=== PATIENT | female | born 1945 | race African-American/Black ===

== ENCOUNTER 2019-01-31 16:08 | Emergency (ER) | payer MEDICARE, OTHER ==
[~2019-01-31] VITALS: Ht 167.6 cm; Wt 82.0 kg
[2019-01-31] MEDS ORDERED: KETOROLAC 60MG/2ML VIAL IM ONE (17:15)
[2019-01-31 17:36] VITALS: BP 112/66
== END 2019-01-31 18:47 | disposition home or self-care (01) ==
LOC: ER 16:08
DX: J20.9 Acute bronchitis, unspecified (principal); I10 Essential (primary) hypertension; E11.9 Type 2 diabetes mellitus without complications; F17.210 Nicotine dependence, cigarettes, uncomplicated
CPT/HCPCS: 96372; 99283; J1885

== ENCOUNTER 2019-02-04 14:04 | Emergency (ER) | payer OTHER ==
[~2019-02-04] VITALS: Ht 167.6 cm; Wt 79.8 kg
[2019-02-04 14:16] VITALS: BP 103/62
== END 2019-02-04 16:30 | disposition home or self-care (01) ==
LOC: ER 14:04
DX: J20.9 Acute bronchitis, unspecified (principal); E11.9 Type 2 diabetes mellitus without complications; I10 Essential (primary) hypertension; F17.200 Nicotine dependence, unspecified, uncomplicated; Z98.890 Other specified postprocedural states; Z86.11 Personal history of tuberculosis; Z88.0 Allergy status to penicillin
CPT/HCPCS: 71045; 99283

== ENCOUNTER 2019-12-08 16:24 | Emergency (ER) | payer OTHER ==
[~2019-12-08] VITALS: Ht 167.6 cm; Wt 84.0 kg
[2019-12-09] MEDS ORDERED: ALBUTEROL (0.083%) 2.5MG/3ML NEB HHN STA (01:13)
[2019-12-09] MEDS ORDERED: PREDNISONE 20MG TABLET PO STA (01:13)
[2019-12-09] MEDS ORDERED: IPRATROPIUM BROMIDE (0.02%) 0.5MG/2.5ML NEB HHN STA (01:13)
[2019-12-09 01:45] VITALS: BP 119/62
== END 2019-12-09 02:28 | disposition home or self-care (01) ==
LOC: ER 16:24
DX: J20.9 Acute bronchitis, unspecified (principal); R05 Cough; R06.2 Wheezing; F17.290 Nicotine dependence, other tobacco product, uncomplicated; E11.9 Type 2 diabetes mellitus without complications; I10 Essential (primary) hypertension; Z88.0 Allergy status to penicillin
CPT/HCPCS: 71045; 82962; 87804; 94644; 99285; J7512